=== PATIENT | female | born 2005 | race Caucasian/White ===

== ENCOUNTER 2024-06-14 09:33 | Emergency (ER) | payer BC, SELFPAY ==
[2024-06-14 09:38] VITALS: BP 133/88
--- NOTE | 2024-06-14 10:27 | ED.GENMED ---
History of Present Illness
General
Chief Complaint: Musculo-Skeletal Complaint
Source: patient
Exam Limitations: none
Time Seen by Provider: 06/14/24 10:19
History of Present Illness
History of Present Illness:
19yoF presenting for evaluation of left ankle pain. She was walking this morning and carrying her infant in a car seat when she tripped and twisted her left ankle. She denies any head injury. She is presenting with lateral left ankle pain. She is
able to bear weight but she is limping. No paresthesias. No other complaints.
Phy Exam
General Physical Exam
General Presentation: well appearing and no apparent distress
General age: appears stated age
General Skin: warm and dry
General Habitus: normal
General Mental: alert
Neurological Exam
Neurological Exam: alert
Musculoskeletal Exam
Musculoskeletal Exam: other (L ankle: Mild swelling overlying lateral malleolus. No deformity or skin changes. +Tenderness to lateral malleolus. No tenderness in foot. ROM of ankle mildly limited 2/2 pain. ROM of knee intact. 2+ DP pulse and
sensation intact. )
Skin Exam
Skin Exam: normal color and warm/dry
Psychiatric Exam
Psychiatric Exam: normal mood/affect
Course
Orders/Labs/Results
Orders:
Orders
06/14/24 09:40
Ankle, left 3 view CR [CR Ankle - Left Min 3 Views ] Urgent
Comment:
Reason For Exam: left ankle pain. fell twisted ankle
06/14/24 10:27
Air Splint Left-Treatment ONCE
Vital Signs
Initial and Last Documented VS:
Initial Vital Signs
Temp Pulse Resp BP Pulse Ox
98.3 F 95 16 133/88 98
06/14/24 09:38 06/14/24 09:38 06/14/24 09:38 06/14/24 09:38 06/14/24 09:38
Last Documented Vital Signs
Temp Pulse Resp BP Pulse Ox
98.3 F 95 16 133/88 98
06/14/24 09:38 06/14/24 09:38 06/14/24 09:38 06/14/24 09:38 06/14/24 09:38
MDM/Problems Addressed
Differential Diagnosis Includes:
19yoF here with L ankle pain after an injury this morning. No deformity on exam. There is tenderness to the lateral malleolus. LLE is neurovascularly intact. Differential diagnosis includes fracture vs. sprain.
X-rays obtained which are negative for fracture. Presentation consistent with an ankle sprain. Supportive care discussed including RICE. Air cast provided. Advised f/u with orthopedics with persistent symptoms.
*Critical Care Note
Total Time (30-74mins, 75-104mins- exclusive of procedures): Not Applicable
ED Attending Note
-
Portions of this chart may have been created with voice recognition software.� Occasional wrong word or��sound alike� substitutions may have occurred due to the inherent limitations of voice recognition software.
Discharge Plan
Departure
Patient Disposition: Home (Routine Discharge)
Date of Disposition: 06/14/24
Time of Disposition: 10:28
Patient with high blood pressure during this ER visit?: No
Discharge Problem:
Left ankle sprain
Instructions: Ankle sprain - ED discharge instructions
Prescriptions:
No Action
amoxicillin 500 MG capsule
500 mg PO TID Qty: 29 0RF
Referrals:
Ilya Mullen MD [Active] -
Activity Restrictions/Additional Instructions:
Rest, ice, compress, and elevate your ankle. Use aircast for support.
Please follow-up with orthopedics if symptoms persist.
Interventions
Interventions:
*Risk Screen - Suicide Last Done: 06/14/24 09:38
*Neglect/Abuse Screening Last Done: 06/14/24 09:38
Discharge Date and Time
Print Language: TRISTANIAN
== END 2024-06-14 11:23 | disposition home or self-care (01) ==
LOC: EMR 09:33
PROVIDERS: EMERGENCY PHYSICIAN Emergency Medicine; FAMILY PHYSICIAN Family Medicine
DX: S93.402A Sprain of unspecified ligament of left ankle, initial encounter (principal); W01.0XXA Fall on same level from slipping, tripping and stumbling without subsequent striking against object, initial encounter
CPT/HCPCS: 99283; 73610